=== PATIENT | female | born 1995 | race Two or more races ===

== ENCOUNTER 2022-04-01 20:35 | Emergency (ER) | payer OTHER ==
[~2022-04-01] VITALS: Ht 165.1 cm; Wt 56.7 kg
== END 2022-04-02 01:27 | disposition home or self-care (01) ==
LOC: ER 20:35
DX: U07.1 COVID-19 (principal); K52.89 Other specified noninfective gastroenteritis and colitis; R11.10 Vomiting, unspecified

== ENCOUNTER 2025-06-23 17:05 | Emergency (ER) | payer OTHER ==
[~2025-06-23] VITALS: Ht 165.1 cm; Wt 59.0 kg
[2025-06-23] MEDS ORDERED: ACETAMINOPHEN 500 MG GEL..CAP PO ONE (18:13)
[2025-06-23 19:15] LABS: BASO % 0.7 % (0.1-1.2); EOS # 0.11 (0.04-0.54); EOS % 1.5 % (0.7-7.0); LYMPH # 0.74 (1.18-3.74); LYMPH % 10.2 % (19.3-53.1); MEAN PLATELET VOLUME 10.40 fl (9.4-12.4); MONO # 0.90 (0.24-0.82); NEUT # 5.41 (1.56-6.13); NEUT % 74.9 % (34.0-71.1); RED CELL DISTRIBUTION WIDTH 12.7 % (11.6-14.4)
[2025-06-23 19:19] LABS: MONO % 12.4 % (4.7-12.5)
[2025-06-23 19:49] LABS: ALT/SGPT 16.0 U/L (12-78); AST/SGOT 16.0 U/L (15-37); BILIRUBIN TOTAL 0.33 mg/dL (0.3-1.2); BUN CREA RATIO 5.0 (7.0-25.0); CREATININE SERUM 0.64 mg/dL (0.55-1.02); GFR 111.31; GLOBULINA 3.3 G/DL (2.4-3.5); GLUCOSE FASTING 90.0 mg/dL (65-100); OSMOLALITY SERUM 270.0 MOSM/KG (275-295)
[2025-06-23 20:20] LABS: COVID-19 AG POSITIVE (NEGATIVE)
[2025-06-23] MEDS ORDERED: PAXLOVID 300/11 EACH PO (20:41)
[2025-06-23] MEDS ORDERED: GILTUSS HONEY118 ML PO (20:41)
== END 2025-06-23 20:56 | disposition home or self-care (01) ==
LOC: ER 17:05
PROVIDERS: Preventive Medicine Public Health & General Preventive Medicine
DX: U07.1 COVID-19 (principal)